=== PATIENT | female | born 1980 | race Hispanic/Latino ===

== ENCOUNTER 2021-04-22 09:08 | Emergency (ER) | payer SELFPAY ==
[~2021-04-22] VITALS: Ht 157.5 cm; Wt 140.6 kg
[2021-04-22 10:20] VITALS: BP 128/68
[2021-04-22 10:23] LABS: APPEARANCE,URINE Clear (CLEAR); BILIRUBIN,URINE Negative (NEGATIVE); COLOR,URINE Orange (YELLOW); GLUCOSE, URINE (UA) Negative (NEGATIVE); KETONES,URINE Negative (NEGATIVE); LEUKOCYTE ESTERASE ,URINE Small (NEGATIVE); NITRATE,URINE Negative (NEGATIVE); OCCULT BLOOD,URINE Large (NEGATIVE); PH,URINE 6.5 (5.0-8.0); PROTEIN,URINE Trace mg/dL (NEGATIVE)
[2021-04-22 10:24] LABS: HCG,QUAL RESULT NEGATIVE (NEGATIVE)
[2021-04-22 10:38] LABS: BASOPHILS % (AUTO) 0.4 % (0.0-5.0); EOSINOPHILS % (AUTO) 2.6 % (0.0-8.0); HEMATOCRIT 34.3 % (36-48); LYMPHOCYTES % (AUTO) 21.4 % (21.0-51.0); MEAN CORPUSCULAR HEMOGLOBIN 20.5 pg (27.0-33.0); MEAN CORPUSCULAR VOLUME 73.1 fL (79-99); MONOCYTES % (AUTO) 7.9 % (3.0-13.0); NEUTROPHILS % (AUTO) 67.1 % (40.0-77.0); PLATELET COUNT (AUTO) 305 K/uL (130-400); RED BLOOD CELL COUNT(AUTO) 4.69 MIL/uL (4.00-5.50); RED CELL DISTRIBUTION WIDTH 17.6 % (11.0-15.5); WHITE BLOOD COUNT (AUTO) 9.3 K/uL (4.8-10.8)
[2021-04-22 10:56] LABS: ALBUMIN 3.1 g/dL (3.5-5.0); BILIRUBIN,TOTAL 0.3 mg/dL (0.2-1.0); CREATININE 0.6 mg/dL (0.5-1.5); POTASSIUM 3.9 mmol/L (3.5-5.1); TOTAL PROTEIN, SERUM 7.5 g/dL (6.0-8.3)
[2021-04-22 11:03] LABS: BACTERIA,URINE Few /HPF (None Seen); RBC,URINE >100 /HPF (0-1)
[2021-04-22 11:04] LABS: MUCUS,URINE Few LPF (None Seen)
[2021-04-22 11:23] VITALS: BP 140/80
[2021-04-22 12:25] VITALS: BP 155/94
[2021-04-22] MEDS ORDERED: BENZ-17 PO (13:13)
[2021-04-22] MEDS ORDERED: ALBU8.5H8 IH (13:13)
[2021-04-22 13:25] VITALS: BP 154/92
== END 2021-04-22 13:25 | disposition home or self-care (01) ==
LOC: EDH 09:08
DX: J06.9 Acute upper respiratory infection, unspecified (principal); R73.9 Hyperglycemia, unspecified; R03.0 Elevated blood-pressure reading, without diagnosis of hypertension; E66.9 Obesity, unspecified; Z20.822 Contact with and (suspected) exposure to COVID-19; Z68.43 Body mass index [BMI] 50.0-59.9, adult
CPT/HCPCS: 36415; 71045; 80053; 81001; 81025; 83880; 85025; 87088; 87635; 87804 ×2; 99285; C9803

== ENCOUNTER 2022-03-29 15:43 | Emergency (ER) | payer OTHER ==
[~2022-03-29] VITALS: Ht 157.5 cm; Wt 140.6 kg
[~2022-03-29 15:43] MED LIST: ALBU8.5H8 IH; BENZ-17 PO
[2022-03-29] MEDS ORDERED: HYDROCODONE/ACETAMINOPHEN 10/325 MG TAB PO ONE (16:00)
[2022-03-29] MEDS ORDERED: NAPR-1180 PO (17:50)
[2022-03-29 18:23] VITALS: BP 129/65
== END 2022-03-29 18:14 | disposition home or self-care (01) ==
LOC: EDH 15:43
DX: S80.02XA Contusion of left knee, initial encounter (principal); R03.0 Elevated blood-pressure reading, without diagnosis of hypertension; E66.01 Morbid (severe) obesity due to excess calories; Z68.43 Body mass index [BMI] 50.0-59.9, adult; X58.XXXA Exposure to other specified factors, initial encounter; Y93.89 Activity, other specified; Y92.89 Other specified places as the place of occurrence of the external cause; Y99.8 Other external cause status
CPT/HCPCS: 73562

== ENCOUNTER 2022-05-04 13:58 | Emergency (ER) | payer OTHER ==
[~2022-05-04] VITALS: Ht 157.5 cm; Wt 138.3 kg
[~2022-05-04 13:58] MED LIST changes: +NAPR-1180 PO
[2022-05-04] MEDS ORDERED: KETOROLAC 60 MG VIAL (30MG/ML) IM ONE (14:30)
[2022-05-04] MEDS ORDERED: CYCLOBENZAPRINE HCL 10 MG TABLET PO ONE (14:30)
[2022-05-04] MEDS ORDERED: NAPR-1180 PO (15:07)
[2022-05-04 15:15] VITALS: BP 142/88
== END 2022-05-04 15:22 | disposition home or self-care (01) ==
LOC: EDH 13:58
DX: S46.911A Strain of unspecified muscle, fascia and tendon at shoulder and upper arm level, right arm, initial encounter (principal); E66.01 Morbid (severe) obesity due to excess calories; Z79.1 Long term (current) use of non-steroidal anti-inflammatories (NSAID); Z86.16 Personal history of COVID-19; Z68.43 Body mass index [BMI] 50.0-59.9, adult; X58.XXXA Exposure to other specified factors, initial encounter; Y93.89 Activity, other specified; Y92.89 Other specified places as the place of occurrence of the external cause; Y99.8 Other external cause status
CPT/HCPCS: 73030; 96372; 99283; J1885

== ENCOUNTER 2022-06-11 23:47 | Emergency (ER) | payer OTHER ==
[~2022-06-11] VITALS: Ht 154.9 cm; Wt 143.3 kg
[2022-06-12] MEDS ORDERED: AZIT1PAC7 PO (01:56)
[2022-06-12] MEDS ORDERED: IBUP-2070 PO (01:56)
[2022-06-12] MEDS ORDERED: D-ME118S47 PO (01:56)
[2022-06-12 02:20] VITALS: BP 143/72
== END 2022-06-12 02:23 | disposition home or self-care (01) ==
LOC: EDH 23:47
DX: J06.9 Acute upper respiratory infection, unspecified (principal); Z20.822 Contact with and (suspected) exposure to COVID-19; Z79.1 Long term (current) use of non-steroidal anti-inflammatories (NSAID)
CPT/HCPCS: 99284; 87635; 87804 ×2; 71045; C9803

== ENCOUNTER 2022-07-03 23:27 | Emergency (ER) | payer OTHER ==
[~2022-07-03] VITALS: Ht 157.5 cm; Wt 135.2 kg
[~2022-07-03 23:27] MED LIST changes: +AZIT1PAC7 PO; +D-ME118S47 PO; +IBUP-2070 PO
[2022-07-04 01:37] VITALS: BP 148/85
[2022-07-04] MEDS ORDERED: SOLU-MEDROL 40MG VIAL IJ ONE (02:00)
[2022-07-04] MEDS ORDERED: SOLU-MEDROL 40MG VIAL ONE (02:07)
[2022-07-04] MEDS ORDERED: METH4TAB PO (02:13)
== END 2022-07-04 02:15 | disposition home or self-care (01) ==
LOC: EDH 23:27
DX: S80.02XA Contusion of left knee, initial encounter (principal); Z79.1 Long term (current) use of non-steroidal anti-inflammatories (NSAID); Z79.52 Long term (current) use of systemic steroids; Z86.16 Personal history of COVID-19; W01.0XXA Fall on same level from slipping, tripping and stumbling without subsequent striking against object, initial encounter; Y93.89 Activity, other specified; Y92.89 Other specified places as the place of occurrence of the external cause; Y99.8 Other external cause status
CPT/HCPCS: 99284; 73564; 96372; J2920

== ENCOUNTER 2022-08-03 13:48 | Emergency (ER) | payer OTHER ==
[~2022-08-03] VITALS: Ht 157.5 cm; Wt 136.1 kg
[~2022-08-03 13:48] MED LIST changes: +METH4TAB PO
[2022-08-03 13:49] VITALS: BP 160/90
[2022-08-03] MEDS ORDERED: IBUP-1493 PO (15:24)
== END 2022-08-03 15:56 | disposition home or self-care (01) ==
LOC: EDH 13:48
DX: M25.511 Pain in right shoulder (principal); M54.2 Cervicalgia; Z79.1 Long term (current) use of non-steroidal anti-inflammatories (NSAID); Z79.52 Long term (current) use of systemic steroids; Z86.16 Personal history of COVID-19
CPT/HCPCS: 72040; 73030

== ENCOUNTER 2022-08-07 21:36 | Emergency (ER) | payer OTHER ==
[~2022-08-07] VITALS: Ht 157.5 cm; Wt 143.8 kg
[~2022-08-07 21:36] MED LIST changes: +IBUP-1493 PO
[2022-08-07 22:07] LABS: APPEARANCE,URINE CLEAR (CLEAR); BILIRUBIN,URINE NEGATIVE (NEGATIVE); COLOR,URINE COLORLESS (YELLOW); GLUCOSE, URINE (UA) TRACE mg/dL (NEGATIVE); KETONES,URINE NEGATIVE (NEGATIVE); LEUKOCYTE ESTERASE ,URINE NEGATIVE Leu/uL (NEGATIVE); NITRATE,URINE NEGATIVE (NEGATIVE); OCCULT BLOOD,URINE NEGATIVE (NEGATIVE); PH,URINE 6.5 (5.0-8.0); PROTEIN,URINE NEGATIVE (NEGATIVE); UROBILINOGEN,URINE 0.2 mg/dL (0.2-1.0)
[2022-08-07 22:09] LABS: HCG,QUALITATIVE URINE NEGATIVE (NEGATIVE)
[2022-08-07 22:10] LABS: BACTERIA,URINE RARE /HPF (None Seen); MUCUS,URINE RARE LPF (None Seen); RBC,URINE 0-1 /HPF (0-1); SQUAMOUS EPITHELIAL CELL,UR FEW /HPF (0-2); WBC,URINE 0-1 /HPF (0-1)
[2022-08-07] MEDS ORDERED: MAG/ALUM/SIMETH 30 ML UDCUP PO ONE (22:30)
[2022-08-07] MEDS ORDERED: ONDANSETRON ODT 4MG TAB SL ONE (22:30)
[2022-08-07] MEDS ORDERED: ONDA-104 PO (23:05)
[2022-08-07] MEDS ORDERED: OMEP20TA2 PO (23:05)
[2022-08-07 23:14] VITALS: BP 132/74
== END 2022-08-07 23:15 | disposition home or self-care (01) ==
LOC: EDH 21:36
DX: K29.00 Acute gastritis without bleeding (principal); Z79.1 Long term (current) use of non-steroidal anti-inflammatories (NSAID); Z79.52 Long term (current) use of systemic steroids; Z86.16 Personal history of COVID-19
CPT/HCPCS: 81001; 81025

== ENCOUNTER 2022-09-13 13:28 | Emergency (ER) | payer OTHER ==
[~2022-09-13] VITALS: Ht 154.9 cm; Wt 138.3 kg
[~2022-09-13 13:28] MED LIST changes: -AZIT1PAC7 PO; -BENZ-17 PO; -D-ME118S47 PO; -IBUP-2070 PO; -METH4TAB PO; -NAPR-1180 PO; +OMEP20TA2 PO; +ONDA-104 PO
[2022-09-13 13:30] VITALS: BP 159/93
[2022-09-13 13:57] LABS: INFLUENZA TYPE A NEGATIVE FOR TYPE A (NEG); INFLUENZA TYPE B NEGATIVE FOR TYPE B (NEG)
[2022-09-13] MEDS ORDERED: OSEL75 PO (14:07)
== END 2022-09-13 14:18 | disposition home or self-care (01) ==
LOC: EDH 13:28
DX: J11.1 Influenza due to unidentified influenza virus with other respiratory manifestations (principal); Z20.822 Contact with and (suspected) exposure to COVID-19; Z90.89 Acquired absence of other organs; Z98.890 Other specified postprocedural states; Z79.899 Other long term (current) drug therapy
CPT/HCPCS: 99283; 87635; 87804 ×2; C9803

== ENCOUNTER 2022-10-14 16:55 | Emergency (ER) | payer OTHER ==
[~2022-10-14] VITALS: Ht 154.9 cm; Wt 138.3 kg
[~2022-10-14 16:55] MED LIST changes: +OSEL75 PO
[2022-10-14 17:06] VITALS: BP 147/76
[2022-10-14] MEDS ORDERED: IBUP-2070 PO (19:38)
== END 2022-10-14 20:00 | disposition home or self-care (01) ==
LOC: EDH 16:55
DX: S46.911A Strain of unspecified muscle, fascia and tendon at shoulder and upper arm level, right arm, initial encounter (principal); S20.212A Contusion of left front wall of thorax, initial encounter; Z90.89 Acquired absence of other organs; Z98.890 Other specified postprocedural states; Z79.899 Other long term (current) drug therapy; W01.0XXA Fall on same level from slipping, tripping and stumbling without subsequent striking against object, initial encounter; Y93.89 Activity, other specified; Y92.89 Other specified places as the place of occurrence of the external cause; Y99.8 Other external cause status
CPT/HCPCS: 71101; 73030

== ENCOUNTER 2022-10-26 19:02 | Emergency (ER) | payer OTHER ==
[~2022-10-26] VITALS: Ht 157.5 cm; Wt 133.8 kg
[~2022-10-26 19:02] MED LIST changes: +IBUP-2070 PO
[2022-10-26 20:29] LABS: APPEARANCE,URINE CLEAR (CLEAR); BILIRUBIN,URINE NEGATIVE (NEGATIVE); COLOR,URINE LIGHT-YELLOW (YELLOW); GLUCOSE, URINE (UA) NEGATIVE (NEGATIVE); KETONES,URINE NEGATIVE (NEGATIVE); LEUKOCYTE ESTERASE ,URINE NEGATIVE Leu/uL (NEGATIVE); NITRATE,URINE NEGATIVE (NEGATIVE); OCCULT BLOOD,URINE LARGE (NEGATIVE); PH,URINE 6.5 (5.0-8.0); PROTEIN,URINE NEGATIVE (NEGATIVE); UROBILINOGEN,URINE 0.2 mg/dL (0.2-1.0)
[2022-10-26 20:31] LABS: HCG,QUALITATIVE URINE NEGATIVE (NEGATIVE)
[2022-10-26 20:40] LABS: BACTERIA,URINE RARE /HPF (None Seen); MUCUS,URINE RARE LPF (None Seen); RBC,URINE 0-1 /HPF (0-1); SQUAMOUS EPITHELIAL CELL,UR RARE /HPF (0-2)
[2022-10-26] MEDS ORDERED: FLUT16H NASAL (20:40)
[2022-10-26] MEDS ORDERED: D-ME118S47 PO (20:40)
[2022-10-26 21:00] VITALS: BP 135/89
== END 2022-10-26 21:05 | disposition home or self-care (01) ==
LOC: EDH 19:02
DX: J06.9 Acute upper respiratory infection, unspecified (principal); Z20.822 Contact with and (suspected) exposure to COVID-19; Z79.1 Long term (current) use of non-steroidal anti-inflammatories (NSAID)
CPT/HCPCS: 99283; 87635; 87880; 87804 ×2; 81001; 81025; C9803

== ENCOUNTER 2022-11-18 13:13 | Emergency (ER) | payer OTHER ==
[~2022-11-18] VITALS: Ht 157.5 cm; Wt 133.8 kg
[~2022-11-18 13:13] MED LIST changes: +D-ME118S47 PO; +FLUT16H NASAL
[2022-11-18] MEDS ORDERED: DICYCLOMINE 20MG (10MG/ML) AMP IM STA (13:51)
[2022-11-18] MEDS ORDERED: ONDANSETRON 4MG INJ IVP ONE (14:00)
[2022-11-18] MEDS ORDERED: FAMOTIDINE 20MG VIAL IV ONE (14:00)
[2022-11-18] MEDS ORDERED: 0.9%NACL 1000ML 1,000 ML IV ONE (14:00)
[2022-11-18 14:03] LABS: BASOPHILS % (AUTO) 0.4 % (0.0-5.0); EOSINOPHILS % (AUTO) 2.4 % (0.0-8.0); HEMATOCRIT 32.4 % (36-48); MEAN CORPUSCULAR HEMOGLOBIN 20.3 pg (27.0-33.0); MEAN CORPUSCULAR HGB CONC 28.1 g/dL (32.0-36.0); MEAN CORPUSCULAR VOLUME 72.3 fL (79-99); MONOCYTES % (AUTO) 7.9 % (3.0-13.0); NEUTROPHILS % (AUTO) 67.4 % (40.0-77.0); PLATELET COUNT (AUTO) 319 K/uL (130-400); RED BLOOD CELL COUNT(AUTO) 4.48 MIL/uL (4.00-5.50); RED CELL DISTRIBUTION WIDTH 15.9 % (11.0-15.5); WHITE BLOOD COUNT (AUTO) 10.7 K/uL (4.8-10.8)
[2022-11-18 14:10] LABS: CREATININE 0.9 mg/dL (0.5-1.5); POTASSIUM 3.6 mmol/L (3.5-5.1)
[2022-11-18 14:14] LABS: ALBUMIN 2.9 g/dL (3.5-5.0); TOTAL PROTEIN, SERUM 7.1 g/dL (6.0-8.3)
[2022-11-18 14:28] LABS: HCG,QUALITATIVE URINE NEGATIVE (NEGATIVE)
[2022-11-18 14:30] LABS: APPEARANCE,URINE CLEAR (CLEAR); BILIRUBIN,URINE NEGATIVE (NEGATIVE); COLOR,URINE LIGHT-YELLOW (YELLOW); GLUCOSE, URINE (UA) >=1000 mg/dL (NEGATIVE); KETONES,URINE NEGATIVE (NEGATIVE); LEUKOCYTE ESTERASE ,URINE NEGATIVE Leu/uL (NEGATIVE); NITRATE,URINE NEGATIVE (NEGATIVE); OCCULT BLOOD,URINE NEGATIVE (NEGATIVE); PH,URINE 6.5 (5.0-8.0); PROTEIN,URINE NEGATIVE (NEGATIVE); UROBILINOGEN,URINE 0.2 mg/dL (0.2-1.0)
[2022-11-18 14:33] LABS: MUCUS,URINE RARE LPF (None Seen); RBC,URINE 0-1 /HPF (0-1); SQUAMOUS EPITHELIAL CELL,UR RARE /HPF (0-2)
[2022-11-18] MEDS ORDERED: DICY20TA2 PO (14:45)
[2022-11-18] MEDS ORDERED: FAMO-136 PO (14:45)
[2022-11-18] MEDS ORDERED: ONDA4TAB10 PO (14:45)
[2022-11-18] MEDS ORDERED: BACI1CAP6 PO (14:45)
[2022-11-18 15:25] VITALS: BP 156/86
== END 2022-11-18 15:26 | disposition home or self-care (01) ==
LOC: EDH 13:13
DX: K52.9 Noninfective gastroenteritis and colitis, unspecified (principal); Z90.89 Acquired absence of other organs; Z79.1 Long term (current) use of non-steroidal anti-inflammatories (NSAID); Z79.899 Other long term (current) drug therapy
CPT/HCPCS: 99284; 96374; 96375; 80053; 83690; 85025; 81001; 81025; 36415; 96372; J3490; J7030; J2405; J0500

== ENCOUNTER 2022-12-28 22:59 | Emergency (ER) | payer OTHER ==
[~2022-12-28] VITALS: Ht 157.5 cm; Wt 142.0 kg
[~2022-12-28 22:59] MED LIST changes: +BACI1CAP6 PO; +DICY20TA2 PO; +FAMO-136 PO; +ONDA4TAB10 PO
[2022-12-29 00:11] VITALS: BP 123/63
[2022-12-29] MEDS ORDERED: PRED20TA3 PO ×2 (00:23→00:24)
[2022-12-29] MEDS ORDERED: PREDNISONE 20 MG TABLET PO ONE (00:30)
== END 2022-12-29 00:37 | disposition home or self-care (01) ==
LOC: EDH 22:59
DX: B34.9 Viral infection, unspecified (principal); Z79.1 Long term (current) use of non-steroidal anti-inflammatories (NSAID); Z79.2 Long term (current) use of antibiotics; Z79.899 Other long term (current) drug therapy; Z20.822 Contact with and (suspected) exposure to COVID-19
CPT/HCPCS: 99283; 87635; 87880; 87804 ×2; C9803

== ENCOUNTER 2023-01-12 15:39 | Emergency (ER) | payer OTHER ==
[~2023-01-12] VITALS: Ht 157.5 cm; Wt 142.9 kg
[~2023-01-12 15:39] MED LIST changes: +PRED20TA3 PO
[2023-01-12 16:23] LABS: HEMATOCRIT 33.9 % (36-48); MEAN CORPUSCULAR HEMOGLOBIN 20.5 pg (27.0-33.0); MEAN CORPUSCULAR HGB CONC 28.3 g/dL (32.0-36.0); MEAN CORPUSCULAR VOLUME 72.4 fL (79-99); PLATELET COUNT (AUTO) 339 K/uL (130-400); RED BLOOD CELL COUNT(AUTO) 4.68 MIL/uL (4.00-5.50); RED CELL DISTRIBUTION WIDTH 16.5 % (11.0-15.5)
[2023-01-12 16:29] LABS: APPEARANCE,URINE CLOUDY (CLEAR); BILIRUBIN,URINE NEGATIVE (NEGATIVE); COLOR,URINE LIGHT-YELLOW (YELLOW); GLUCOSE, URINE (UA) NEGATIVE (NEGATIVE); KETONES,URINE NEGATIVE (NEGATIVE); LEUKOCYTE ESTERASE ,URINE 75 Leu/uL (NEGATIVE); NITRATE,URINE NEGATIVE (NEGATIVE); OCCULT BLOOD,URINE NEGATIVE (NEGATIVE); PROTEIN,URINE NEGATIVE (NEGATIVE); UROBILINOGEN,URINE 0.2 mg/dL (0.2-1.0)
[2023-01-12] MEDS ORDERED: MORPHINE 4 MG SYG IVP ONE (16:30)
[2023-01-12] MEDS ORDERED: ONDANSETRON 4MG INJ IVP ONE (16:30)
[2023-01-12] MEDS ORDERED: IOHEXOL 350 MG/ML 100ML INFUS..BTL IV ONE (16:31)
[2023-01-12 16:39] LABS: CREATININE 0.8 mg/dL (0.5-1.5); POTASSIUM 3.6 mmol/L (3.5-5.1)
[2023-01-12 16:43] LABS: ALBUMIN 3.1 g/dL (3.5-5.0); TOTAL PROTEIN, SERUM 7.3 g/dL (6.0-8.3)
[2023-01-12 16:46] LABS: BACTERIA,URINE RARE /HPF (None Seen); MUCUS,URINE RARE LPF (None Seen); SQUAMOUS EPITHELIAL CELL,UR MANY /HPF (0-2)
[2023-01-12] MEDS ORDERED: CEFTRIAXONE 1G VIAL IVP ONE (17:00)
[2023-01-12 18:57] VITALS: BP 149/90
[2023-01-12] MEDS ORDERED: CEPH500B PO (19:03)
== END 2023-01-12 19:21 | disposition home or self-care (01) ==
LOC: EDH 15:39
DX: N39.0 Urinary tract infection, site not specified (principal); Z79.899 Other long term (current) drug therapy
CPT/HCPCS: 99285; 74177; 96374; 80053; 83690; 85027; 87088; 83605; 81001; 36415; J0696; Q9967

== ENCOUNTER 2023-03-08 21:58 | Emergency (ER) | payer OTHER ==
[~2023-03-08] VITALS: Ht 157.5 cm; Wt 141.1 kg
[~2023-03-08 21:58] MED LIST changes: +CEPH500B PO
[2023-03-08 23:01] VITALS: BP 132/60
[2023-03-08] MEDS ORDERED: IBUP-1493 PO (23:32)
== END 2023-03-08 23:38 | disposition home or self-care (01) ==
LOC: EDH 21:58
DX: S80.01XA Contusion of right knee, initial encounter (principal); S50.11XA Contusion of right forearm, initial encounter; Z79.899 Other long term (current) drug therapy; Z90.89 Acquired absence of other organs; Z98.890 Other specified postprocedural states; W06.XXXA Fall from bed, initial encounter; Y93.89 Activity, other specified; Y92.89 Other specified places as the place of occurrence of the external cause; Y99.8 Other external cause status
CPT/HCPCS: 73090; 73562; 81025

== ENCOUNTER 2023-03-10 19:10 | Emergency (ER) | payer OTHER ==
[~2023-03-10] VITALS: Ht 157.5 cm; Wt 141.1 kg
[2023-03-10 19:31] VITALS: BP 138/84
[2023-03-10 19:54] LABS: APPEARANCE,URINE CLOUDY (CLEAR); BILIRUBIN,URINE NEGATIVE (NEGATIVE); COLOR,URINE LIGHT-YELLOW (YELLOW); GLUCOSE, URINE (UA) NEGATIVE (NEGATIVE); KETONES,URINE NEGATIVE (NEGATIVE); LEUKOCYTE ESTERASE ,URINE 75 Leu/uL (NEGATIVE); NITRATE,URINE NEGATIVE (NEGATIVE); OCCULT BLOOD,URINE NEGATIVE (NEGATIVE); PROTEIN,URINE NEGATIVE (NEGATIVE); UROBILINOGEN,URINE 0.2 mg/dL (0.2-1.0)
[2023-03-10] MEDS ORDERED: IBUP-1493 PO (19:56)
[2023-03-10] MEDS ORDERED: IBUPROFEN 800 MG TAB PO ONE (20:00)
[2023-03-10] MEDS ORDERED: IBUPROFEN 400 MG TABLET ONE (20:05)
[2023-03-10 20:17] LABS: BACTERIA,URINE RARE /HPF (None Seen); MUCUS,URINE RARE LPF (None Seen); SQUAMOUS EPITHELIAL CELL,UR FEW /HPF (0-2)
== END 2023-03-10 20:38 | disposition home or self-care (01) ==
LOC: EDH 19:10
DX: S80.01XA Contusion of right knee, initial encounter (principal); W06.XXXA Fall from bed, initial encounter; Y93.89 Activity, other specified; Y92.89 Other specified places as the place of occurrence of the external cause; Y99.8 Other external cause status; Z79.899 Other long term (current) drug therapy; Z90.89 Acquired absence of other organs; Z98.890 Other specified postprocedural states
CPT/HCPCS: 81001; 87088